=== PATIENT | male | born 1970 | race Hispanic/Latino ===

== ENCOUNTER 2020-11-11 08:22 | Outpatient (CLI) | payer OTHER | END 2020-11-11 08:23 | disposition home or self-care (01) | LOC: BICRAD 08:22 | PROVIDERS: ATTEND Nurse Practitioner Family | DX: S69.92XA Unspecified injury of left wrist, hand and finger(s), initial encounter (principal); M19.042 Primary osteoarthritis, left hand; M79.89 Other specified soft tissue disorders ==